=== PATIENT | male | born 1965 | race Caucasian/White ===

== ENCOUNTER → 2017-02-07 | Outpatient (CLI) | payer OTHER ==
[~2017-02-07] MED LIST: DULO60CA7 PO; LIDOCAINE 1%, 20ML ONE; OMNIPAQUE 300 MG/ML, 10ML VIAL ONE; OXYC-302 PO; ROPIvacaine/PF 0.2%, 20 ML ONE; TAMS-11 PO; TRIAMCINOLONE ACETONIDE 40 MG/ML, 1ML ONE
== END | disposition home or self-care (01) ==
LOC: CFH 08:12
PROVIDERS: ATTEND Orthopaedic Surgery
DX: S92.011A Displaced fracture of body of right calcaneus, initial encounter for closed fracture (principal); X58.XXXA Exposure to other specified factors, initial encounter; Y93.89 Activity, other specified; Y92.89 Other specified places as the place of occurrence of the external cause; Y99.8 Other external cause status
CPT/HCPCS: 77002; J2795; J3301; J3490; Q9967

== ENCOUNTER → 2017-12-19 | Outpatient (CLI) | payer OTHER ==
[~2017-12-19] MED LIST changes: -LIDOCAINE 1%, 20ML ONE; -OMNIPAQUE 300 MG/ML, 10ML VIAL ONE; -ROPIvacaine/PF 0.2%, 20 ML ONE; -TRIAMCINOLONE ACETONIDE 40 MG/ML, 1ML ONE
== END | disposition home or self-care (01) ==
LOC: CFH 14:48
PROVIDERS: ATTEND Nurse Practitioner
DX: M25.562 Pain in left knee (principal)

== ENCOUNTER 2018-04-26 10:31 | Emergency (ER) | payer OTHER ==
[~2018-04-26] VITALS: Ht 193 cm; Wt 106.8 kg
[2018-04-26 10:35] VITALS: BP 136/84
[2018-04-26] MEDS ORDERED: SODIUM CHLORIDE FLUSH 10ML SYR IVF ONE (11:00)
[2018-04-26 11:16] LABS: BASOPHILS # (AUTO) 0.04 x10^3/uL (0-0.1); BASOPHILS % (AUTO) 0 % (0-1); EOSINOPHILS # (AUTO) 0.12 x10^3/uL (0-0.4); EOSINOPHILS % (AUTO) 1 % (1-7); LYMPHOCYTES # (AUTO) 1.71 x10^3/uL (1-3.4); LYMPHOCYTES % (AUTO) 12 % (22-44); MD NO; MEAN CORPUSCULAR HEMOGLOBIN 32.8 pg (27.5-34.5); MEAN CORPUSCULAR HGB CONC 34.3 g/dL (33.2-36.2); MEAN CORPUSCULAR VOLUME 95.7 fL (81-97); MEAN PLATELET VOLUME 7.3 fL (7.4-10.4); MONOCYTES % (AUTO) 9 % (2-9); NEUTROPHILS # (AUTO) 11.51 x10^3/uL (1.8-6.8); NEUTROPHILS % (AUTO) 78 % (42-75); PLATELET COUNT 304 x10^3/uL (130-400); RED BLOOD COUNT 4.84 x10^6/uL (4.38-5.82)
[2018-04-26 11:28] LABS: ALANINE AMINOTRANSFERASE 24 U/L (12-78); ALBUMIN 4.3 g/dL (3.4-5.0); ANION GAP 8 mmol/L (5-15); CALCIUM 8.8 mg/dL (8.5-10.1); CHLORIDE 107 mmol/L (98-107); CREATININE 0.85 mg/dL (0.7-1.3)
[2018-04-26 11:30] LABS: ALKALINE PHOSPHATASE 79 U/L (45-117); BILIRUBIN,TOTAL 1.4 mg/dL (0.2-1.0); TOTAL PROTEIN 8.2 g/dL (6.4-8.2)
[2018-04-26] MEDS ORDERED: OMNIPAQUE 350 MG/ML, 100ML BOTTLE ONE (11:58)
[2018-04-26] MEDS ORDERED: metroNIDAZOLE 500 MG TABLET PO ONE (12:30)
[2018-04-26] MEDS ORDERED: AMOXICILLIN/CLAV 875-125MG TABLET PO ONE (12:30)
[2018-04-26] MEDS ORDERED: ONDANSETRON ODT 4 MG PO ONE (12:30)
[2018-04-26] MEDS ORDERED: metroNIDAZOLE 500 MG TABLET ONE (12:41)
[2018-04-26] MEDS ORDERED: ONDANSETRON ODT 4 MG ONE (12:42)
[2018-04-26] MEDS ORDERED: AMOXICILLIN/CLAV 875-125MG TABLET ONE (12:42)
== END 2018-04-26 13:21 | disposition home or self-care (01) ==
LOC: ED 12:41
DX: K57.32 Diverticulitis of large intestine without perforation or abscess without bleeding (principal)
CPT/HCPCS: 36415; 74177; 80053; 85025; 99284; Q0162; Q9967